=== PATIENT | female | born 1970 | race Caucasian/White ===

== ENCOUNTER 2022-02-27 12:58 | Outpatient (CLI) | payer BC, SELFPAY ==
[2022-02-27 15:04] LABS: Influenza A QL RT-PCR Negative (Negative); Influenza B QL RT-PCR Negative (Negative); RSV RNA, RT-PCR Negative (Negative); SARS-CoV-2 RNA PCR Positive
== END 2022-02-27 12:59 | disposition home or self-care (01) ==
LOC: ANHLAB 13:00
PROVIDERS: PCP Internal Medicine; Visit Provider Internal Medicine
DX: U07.1 COVID-19 (principal)
CPT/HCPCS: 87637

== ENCOUNTER 2022-03-02 12:07 | Outpatient (CLI) | payer BC, SELFPAY ==
--- NOTE | ~2022-03-02 | XR_ITS ---
XR chest 2V DATE: 03/02/2022 12:24 INDICATION: Cough. Covid-positive. TECHNIQUE: PA and lateral views COMPARISON: 04/21/2013 2 view chest 10/15/2004 two-view chest FINDINGS: Left-sided transvenous pacemaker device with leads overlying right atrium and right ventric le. Normal heart size. No hilar or mediastinal enlargement. No pulmonary vascular congestion or pleur al effusion. No pulmonary infiltrate or consolidation. There is patchy sclerotic density of the left humeral neck and proximal shaft, not evident on 005 (this area was not included in the 04/21/2013 chest radiographic examination), which may be due to osteonecrosis or chondroid lesion. Consider left humeral radiographs for further evaluation.. IMPRESSION: Left dual-lead pacemaker No active cardiac pulmonary disease Patchy sclerosis of left humeral neck and shaft; differential diagnosis includes osteonecrosis and ch ondroid lesion. Consider left humeral radiographs Reviewed, dictated and finalized at location B. [employer] IMPRESSION: Left dual-lead pacemaker No active cardiac pulmonary disease Patchy sclerosis of left humeral neck and shaft; differential diagnosis include s osteonecrosis and chondroid lesion. Consider left humeral radiographs
== END 2022-03-02 12:08 | disposition home or self-care (01) ==
LOC: ANHIMG 12:13
PROVIDERS: PCP Internal Medicine; Visit Provider Physician Assistant
DX: R05.9 Cough, unspecified (principal); Z95.0 Presence of cardiac pacemaker; R91.8 Other nonspecific abnormal finding of lung field
CPT/HCPCS: 71046

== ENCOUNTER 2025-01-22 07:56 | Outpatient (CLI) | payer BC, SELFPAY ==
--- NOTE | ~2025-01-22 | DEXA_ITS ---
Bone Density Report Name: RAAD MARTIN Age: 54 Sex: Female Ethnicity: White Date of : 1970 Indication: postmenopausal; screening for osteoporosis; height loss; Referring Provider: STERLING RUEDA Study: Bone densitometry was performed. Exam Date: January 22, 2025 Accession number: [id number] Bone Density: Region BMD T-score Z-score Classification AP Spine(L1-L4) 0.851 -1.8 -0.7 Osteopenia Femoral Neck (Left) 0.815 -0.3 0.7 Normal Total Hip (Left) 0.961 0.2 0.8 Normal Femoral Neck (Right) 0.798 -0.5 0.6 Normal Total Hip (Right) 0.964 0.2 0.8 Normal Total Hip Mean 0.963 0.2 0.8 Normal World Health Organization criteria for BMD impression classify patients as: Normal (T-score at or above -1.0), Osteopenia (T-score between -1.0 and -2.5), or Osteoporosis (T-score at or below -2.5). 10-year Fracture Risk(1): Major Osteoporotic Fracture 5.3% Hip Fracture 0.1% Reported Risk Factors: [place] (), Neck BMD=0.798, BMI=26.9 (1) FRAX(R) Version 3.08. Fracture probability calculated for an untreated patient. Fracture probability may be lower if the patient has received treatment. Clinical Information Provided by Patient: Has used the following medications: Vitamin D, Calcium Patient maximum height was 70 Menopause Age: 52 Onset of menses at age 11 Number of children 2 Impression: The patient has low bone mass, based on the Total Spine T-score. The patient has an estimated ten-year risk of hip fracture of 0.1% and an estimated ten-year risk of major fracture of 5.3%, based on the WHO FRAX algorithm. Discussion: BONE DENSITY IS LOW AT ONE OR MORE SKELETAL SITES. This patient's lowest T-score is low at one or more skeletal sites. It meets the World Health Organization's (WHO) criteria for ?low bone mass? (T-score between -1.0 and -2.5). The patient's 10-year risk of fracture as calculated by FRAX is less than the threshold where pharmacological therapy is recommended by the National Osteoporosis Foundation (NOF). However, all treatment decisions require clinical judgment and consideration of individual patient factors, including patient preferences, comorbidities, previous drug use, risk factors not captured in the FRAX model (e.g., frailty, falls, vitamin D deficiency, increased bone turnover, interval significant decline in bone density) and possible under or overestimation of fracture risk by FRAX. The patient should follow a healthful lifestyle (good nutrition with adequate calcium and vitamin D, and appropriate weight-bearing exercise). Follow-Up: Consider repeating this study in 2 to 3 years to reassess this patient's status, or sooner if there is some new clinical indication. Reported by: ENRIQUE on 01/22/2025 8:19:00 AM. Reviewed, dictated and finalized at location A.
== END 2025-01-22 07:57 | disposition home or self-care (01) ==
LOC: MICIMG 07:57
PROVIDERS: PCP Internal Medicine; Visit Provider Obstetrics & Gynecology
DX: Z78.0 Asymptomatic menopausal state (principal); M85.88 Other specified disorders of bone density and structure, other site
CPT/HCPCS: 77080